=== PATIENT | female | born 1950 | race Caucasian/White ===

== ENCOUNTER 2020-03-08 11:11 | Emergency (ER) | payer OTHER ==
[~2020-03-08] VITALS: Ht 152.4 cm; Wt 49.0 kg
[~2020-03-08 11:11] MED LIST: NORCO1 TA2 PO
[2020-03-08 11:34] VITALS: Ht 152.4 cm; Wt 49.0 kg
[2020-03-08 13:22] VITALS: BP 104/71
== END 2020-03-08 13:23 | disposition home or self-care (01) ==
LOC: ED 11:11
DX: N39.0 Urinary tract infection, site not specified (principal); Z85.41 Personal history of malignant neoplasm of cervix uteri
CPT/HCPCS: J0696; J7030

== ENCOUNTER 2020-03-11 10:04 | Emergency (ER) | payer OTHER ==
[~2020-03-11] VITALS: Ht 152.4 cm; Wt 50.8 kg
[2020-03-11 10:16] VITALS: Ht 152.4 cm; Wt 50.8 kg
[2020-03-11 11:17] LABS: UA SPECIFIC GRAVITY 1.025 (1.005-1.035); microscopic required? YES; urine erythrocyte 3+ (NEGATIVE)
[2020-03-11 12:40] LABS: CALCIUM 9.6 mg/dL (8.5-10.1); CARBON DIOXIDE 25.1 mmol/L (21-32); CHLORIDE SERUM 103 mmol/L (98-107); CREATININE SERUM 1.5 mg/dL (0.6-1.0); GLUCOSE SERUM 121 mg/dL (74-106); SODIUM SERUM 137 mmol/L (136-145)
[2020-03-11 12:45] LABS: ALBUMIN 3.5 g/dL (3.4-5.0); ALKALINE PHOSPHATASE 62 U/L (46-116); ALT/SGPT 23 U/L (14-59); AST/SGOT 23 U/L (15-37); BILIRUBIN TOTAL 0.62 mg/dL (0.20-1.00); TOTAL PROTEIN, SERUM 6.5 g/dL (6.4-8.2)
[2020-03-11 13:01] LABS: PLATELET COUNT 182 x10^3mcL (130-400)
[2020-03-11 13:07] LABS: BASOPHIL % 0 % (0-2); RED CELL DISTRIBUTION WIDTH 20.2 % (11.5-14.5)
[2020-03-11 13:30] LABS: rbc morphology (normal/abnorm) ABNORMAL (NORMAL)
[2020-03-11 15:19] VITALS: BP 126/70
== END 2020-03-11 15:19 | disposition home or self-care (01) ==
LOC: ED 10:04
PROVIDERS: Emergency Medicine
DX: N39.0 Urinary tract infection, site not specified (principal)
CPT/HCPCS: J0696; J7030; J7060